=== PATIENT | female | born 1935 | race Caucasian/White ===

== ENCOUNTER → 2016-08-08 | Outpatient (CLI) | payer MEDICARE ==
--- NOTE | 2016-08-10 14:03 | MRI ---
Study: MRI of the brain. Indication: ALTERED MENTAL STATUS Technique: Multiplanar, multi sequence MRI of the brain obtained without intravenous contrast. Comparison: None. Findings: No MRI evidence of acute ischemia, acute hemorrhage, mass, mass effect, midline shift, or extra-axial fluid collection. Ventricles are normal in configuration without hydrocephalus. Patchy elevated T2/FLAIR signal abnormality is seen within the periventricular and subcortical white matter. Although nonspecific, this finding is most consistent with chronic microvascular ischemic change. Global parenchymal volume loss noted as well. Two small remote left cerebellar infarcts. Remote lacunar infarct anterior left frontal centrum semiovale measuring up to 9 mm. Midline structures are intact. Paranasal sinuses are adequately aerated. Mastoid air cells are adequately aerated. Osseous structures and soft tissues demonstrate normal signal characteristics. Impression: No MRI evidence of acute intracranial abnormality. Senescent changes. Remote infarcts as above. Electronically signed by: Nehemias Mireles MD 08/10/2016 2:02 PM CDT
== END | disposition home or self-care (01) ==
LOC: MRI 07:58
PROVIDERS: ATTEND Family Medicine
DX: R40.1 Stupor (principal)

== ENCOUNTER 2016-10-15 10:15 | Inpatient (IN) | payer MEDICARE ==
--- NOTE | 2016-10-15 10:28 | HP ---
SUPERVISING PHYSICIAN: Wally Gaona M.D. CHIEF COMPLAINT: Fever, shortness of breath and pneumonia. HISTORY OF PRESENT ILLNESS: This is an 81 year-old female patient who was seen in her primary care physician's office, Dr. Joe Boothe, due to acute lobar pneumonia. She complained of coughing and shortness of breath with any exertion. She was actually seen in the Emergency Room 5 days ago and diagnosed with left lower lobe pneumonia. She had been treated with Azithromycin, Keflex and prednisone, and her condition in fact worsened. She had a 101 degree fever on Thursday and she has had a productive cough, although she cannot get most of the phlegm up. I was called by Dr. Boothe for admission to the hospital. PAST MEDICAL HISTORY: 1. Gastroesophageal reflux disease. 2. Hyperlipidemia. 3. Osteoarthritis. 4. Osteoporosis. 5. Diastolic heart failure with an ejection fraction of 53% in 2010. 6. Lumbar disc disease. 7. Restless leg syndrome. 8. Chronic inflammatory demyelinating polyneuropathy. 9. Dementia. PAST SURGICAL HISTORY: 1. Appendectomy. 2. Cholecystectomy. 3. Fracture repair of the right femoral neck and right femoral shaft. 4. Hysterectomy. 5. Joint replacement of the right and left knee. 6. Laminectomy. 7. Vertebroplasty. OUTPATIENT MEDICATIONS: Per the EMR and awaiting verification. ALLERGIES: NO KNOWN DRUG ALLERGIES ALTHOUGH SHE HAD SOME ITCHINESS AT THE IV INSERTION SITE AFTER THE ADMINISTRATION OF LEVAQUIN TODAY. SOCIAL HISTORY: She is retired. She is . She has 2 children. She has a past history of cigarette smoking but quit many years ago. She denies any ETOH or illicit drug use. REVIEW OF SYSTEMS: GENERAL: Positive for fever, negative for fatigue or weight changes. HEENT: Negative for ear pain, vision changes, sore throat or sinus problems. RESPIRATORY: Positive for productive cough and dyspnea as well as wheezing. CARDIAC: Negative for chest pain, palpitations or tachycardia. GASTROINTESTINAL: Negative for abdominal pain, nausea, vomiting or diarrhea. GENITOURINARY: Negative for hematuria, dysuria or polyuria. NEUROLOGIC: Positive for weakness. Negative for headache or seizures. PHYSICAL EXAMINATION: VITAL SIGNS: Blood pressure 120/70, pulse rate 71, respiratory rate 18 but is up to 24 to 26 breaths per minute with exertion. O2 sat was 91% at her primary care physician's office at rest, but with exertion it dropped to 87%. GENERAL: This is an 81 year-old female patient who is sitting up in her hospital bed. HEENT: Normocephalic and atraumatic. Pupils are equal and reactive. Oropharynx is clear. NECK: Supple without mass. CHEST: Has coarse breath sounds throughout with some diffuse expiratory wheezes. CARDIOVASCULAR: Regular rate and rhythm. ABDOMEN: Soft, nondistended, non-tender. Bowel sounds are positive. EXTREMITIES: No cyanosis, clubbing or edema. SKIN: Warm and dry with no lesions or rashes noted. NEUROLOGIC: She is awake, alert and oriented to person and place. She does get quite forgetful at times and sometimes has a difficult time answering questions. LABORATORY: WBCs are 11.4 with her H&H at 15.1 and 45.5, platelets 226. Chloride 100, BUN 27, glucose 109, BNP 103. All other labs and films have been reviewed via the EMR. ASSESSMENT: 1. Left lower lobe pneumonia with failed outpatient therapy most likely community acquired pneumonia with Streptococcus pneumoniae most likely pathogen. 2. Exacerbation of chronic obstructive pulmonary disease. 3. Gastroesophageal reflux disease. 4. Obstructive sleep apnea. 5. Spinal stenosis. 6. Diastolic congestive heart failure with an ejection fraction of 53% in 2011. 7. Restless leg syndrome. 8. Chronic inflammatory demyelinating polyneuropathy. PLAN: We will admit the patient to the hospital. I have started her on scheduled and p.r.n. nebulizer treatments. She will also have an IV steroid taper. Initially I started her on Levaquin but she had some itchiness and redness at the IV site after starting the infusion, so I stopped that and I have changed her to IV Azithromycin and Rocephin. We will monitor her cultures as they become available. I have repeated the lab and a chest x-ray in the morning. I have also added Mucinex as well as bronchial hygiene and percussion. I will restart her home medications. We will monitor the patient closely and followup as needed. Dr. Gaona is the collaborating physician available for consultation. #[id number] [facility]
[2016-10-15] MEDS ORDERED: methylPREDNISolone SODIUM SUC 125 MG/2 ML VIAL IV ONE (12:34)
[2016-10-15] MEDS ORDERED: levoFLOXacin 500MG IV 500 MG in PREMIX BAG 1 BAG IVPB ONE (12:34)
[2016-10-15] MEDS ORDERED: ALBUTEROL SULFATE 2.5 MG/3 ML VIAL NEB PRN (12:36)
[2016-10-15] MEDS ORDERED: SODIUM CHLORIDE 0.9% 500ML 500 ML IVS ONE (12:40)
[2016-10-15] MEDS ORDERED: SODIUM CHLORIDE 0.9% (FLUSH) 10 ML SYG IV PRN (12:50)
[2016-10-15] MEDS: HYDROcodone 10MG/APAP 325MG 1 EA TAB PO SCH ×2 (13:06→20:17)
[2016-10-15] MEDS: IPRATROPIUM/ALBUTEROL 3 ML VIAL NEB SCH ×3 (13:30→20:10)
[2016-10-15] MEDS: GABAPENTIN 100 MG CAP PO SCH (14:20)
[2016-10-15] MEDS ORDERED: levoFLOXacin 500MG IV 100 ML IVPB ONE (14:36)
[2016-10-15] MEDS ORDERED: methylPREDNISolone SODIUM SUC 125 MG/2 ML VIAL ONE (14:37)
[2016-10-15] MEDS: IV SET AND CAP CHANGE INJ INJ SCH (14:45)
--- NOTE | 2016-10-15 14:47 | RAD ---
Procedure: XR CHEST 2 VIEWS Exam date: 10/15/2016 12:34 PM CDT Ordering Provider: PUSHPA BASHIR Clinical Indication: pneumonia Comparison: None Findings: Cardiomediastinal silhouette is within normal limits. Elevation of the right hemidiaphragm. Otherwise, lungs are clear. No pleural effusion or pneumothorax. Osseous structures are nonacute. Prior vertebral augmentation procedure in the lower thoracic spine. No evidence of active tuberculosis. Impression: No acute cardiopulmonary process. Electronically signed by: Jarocho Burns MD 10/15/2016 2:46 PM CDT
[2016-10-15] MEDS ORDERED: cefTRIAXone SODIUM 1 GM VIAL ONE ×2 (17:43→20:15)
[2016-10-15] MEDS ORDERED: SODIUM CHL 0.9% 50ML MIN-BAG+ 50 ML IVPB ONE ×2 (17:45→20:15)
[2016-10-15] MEDS: cefTRIAXone SODIUM 1 GM in SODIUM CHL 0.9% 50ML MIN-BAG+ 50 ML IVPB SCH (17:53)
[2016-10-15] MEDS: POTASSIUM CHLORIDE 20 MEQ TAB PO SCH (17:54)
[2016-10-15] MEDS ORDERED: SODIUM CHLORIDE 0.9% 250ML 250 ML ONE (20:14)
[2016-10-15] MEDS ORDERED: AZITHROMYCIN IV 500 MG VIAL IVPB ONE (20:16)
[2016-10-15] MEDS: AZITHROMYCIN IV 500 MG in SODIUM CHLORIDE 0.9% 250ML 250 ML IVPB SCH (20:40)
[2016-10-15] MEDS: guaiFENesin ER TAB 600 MG TAB PO SCH (20:54)
[2016-10-15] MEDS: DONEPEZIL HCL 5 MG TAB PO SCH (20:54)
[2016-10-15] MEDS: CELECOXIB 100 MG CAP PO SCH (20:54)
[2016-10-15] MEDS: GABAPENTIN 300 MG CAP PO SCH (20:54)
[2016-10-15] MEDS: PRAVASTATIN SODIUM 20 MG TAB PO SCH (20:54)
[2016-10-16] MEDS: HYDROcodone 10MG/APAP 325MG 1 EA TAB PO SCH ×4 (00:43→18:03)
[2016-10-16] MEDS: methylPREDNISolone SODIUM SUC 125 MG/2 ML VIAL IV SCH ×4 (00:47→18:08)
[2016-10-16] MEDS: cefTRIAXone SODIUM 1 GM in SODIUM CHL 0.9% 50ML MIN-BAG+ 50 ML IVPB SCH ×2 (05:05→17:02)
--- NOTE | 2016-10-16 07:14 | RAD ---
Procedure: XR CHEST 2 VIEWS Exam Date: 10/16/2016 Ordering Provider: PUSHPA BASHIR Clinical Indication: pna Comparison: 10/15/2016 Findings: Cardiac silhouette: Normal Pulmonary vasculature : Normal Mediastinal contour: Normal Aortic contour: Aortic calcification. Focal lung consolidation: No focal lung consolidation. Elevation of the right hemidiaphragm. Pleural effusion: None Pneumothorax: None Acute bony or soft tissue abnormality: None Impression: 1. No acute abnormalities in the chest. Electronically signed by: Babar Ward MD 10/16/2016 7:14 AM CDT
[2016-10-16] MEDS: POTASSIUM CHLORIDE 20 MEQ TAB PO SCH ×2 (07:55→17:02)
[2016-10-16] MEDS: IPRATROPIUM/ALBUTEROL 3 ML VIAL NEB SCH ×4 (08:34→20:45)
[2016-10-16] MEDS: FLUTICASONE PROP 0.05% NASAL 16 GM BTTL BNAS SCH (09:18)
[2016-10-16] MEDS: GABAPENTIN 100 MG CAP PO SCH ×2 (09:19→12:56)
[2016-10-16] MEDS: FUROSEMIDE 40 MG TAB PO SCH (09:19)
[2016-10-16] MEDS: guaiFENesin ER TAB 600 MG TAB PO SCH ×2 (09:19→20:51)
--- NOTE | 2016-10-16 12:00 | PCM.CORE ---
Physician DVT/VTE - Prophylaxis Currently: Patient already on anticoagulation therapy - Nurse DVT Assessment & Total Each Risk Factor Represents 3 Points: Age over 75 years, Medical PT with Hx of SD, CHF, Severe infection/sepsis Each Risk Factor Represents 1 Point: Medical PT at Bed Rest Each Risk Factor is 1 Point: Serious Lung disease (pnemonia <1month, COPD, emphysema,etc) DVT Assessment Score: 8 - 5 or more Very High Risk Treatments: Early Ambulation *, Sequential Compression Device
[2016-10-16] MEDS ORDERED: methylPREDNISolone SODIUM SUC 40 MG/ML VIAL IV SCH (12:30)
[2016-10-16] MEDS: PANTOPRAZOLE SODIUM IV 40 MG VIAL IV SCH (12:56)
[2016-10-16] MEDS: ENOXAPARIN SODIUM 40 MG/0.4 ML SYG SUBCU SCH (12:56)
[2016-10-16] MEDS ORDERED: IBUPROFEN 400 MG TAB PO ONE (15:30)
[2016-10-16] MEDS ORDERED: cefTRIAXone SODIUM 1 GM VIAL ONE (16:50)
[2016-10-16] MEDS ORDERED: SODIUM CHLORIDE 0.9% 250ML 250 ML ONE (16:50)
[2016-10-16] MEDS ORDERED: SODIUM CHL 0.9% 50ML MIN-BAG+ 50 ML IVPB ONE (16:50)
[2016-10-16] MEDS ORDERED: AZITHROMYCIN IV 500 MG VIAL IVPB ONE (16:51)
[2016-10-16] MEDS: AZITHROMYCIN IV 500 MG in SODIUM CHLORIDE 0.9% 250ML 250 ML IVPB SCH (18:02)
[2016-10-16] MEDS ORDERED: methylPREDNISolone SODIUM SUC 40 MG/ML VIAL ONE ×2 (18:05→20:49)
[2016-10-16] MEDS: methylPREDNISolone SODIUM SUC 40 MG/ML VIAL IV SCH (20:51)
[2016-10-16] MEDS: PRAVASTATIN SODIUM 20 MG TAB PO SCH (20:51)
[2016-10-16] MEDS: DONEPEZIL HCL 5 MG TAB PO SCH (20:52)
[2016-10-16] MEDS: GABAPENTIN 300 MG CAP PO SCH (20:52)
[2016-10-16] MEDS: CELECOXIB 100 MG CAP PO SCH (20:52)
[2016-10-16] MEDS ORDERED: ALPRAZolam 0.25 MG TAB PO PRN (21:44)
[2016-10-16] MEDS ORDERED: IBUPROFEN 400 MG TAB ONE (21:45)
[2016-10-17] MEDS: HYDROcodone 10MG/APAP 325MG 1 EA TAB PO SCH ×5 (00:21→18:42)
[2016-10-17] MEDS ORDERED: SODIUM CHL 0.9% 50ML MIN-BAG+ 50 ML IVPB ONE ×2 (05:17→16:12)
[2016-10-17] MEDS ORDERED: cefTRIAXone SODIUM 1 GM VIAL ONE ×2 (05:17→16:12)
[2016-10-17] MEDS: cefTRIAXone SODIUM 1 GM in SODIUM CHL 0.9% 50ML MIN-BAG+ 50 ML IVPB SCH ×2 (05:43→16:38)
[2016-10-17] MEDS: methylPREDNISolone SODIUM SUC 40 MG/ML VIAL IV SCH ×2 (05:43→13:51)
[2016-10-17] MEDS: POTASSIUM CHLORIDE 20 MEQ TAB PO SCH ×2 (08:07→16:38)
--- NOTE | 2016-10-17 08:25 | PN ---
SUPERVISING PHYSICIAN: Joe Boothe MD DATE: 10/16/16 SUBJECTIVE: The patient is sitting up in her bed eating her meal. She complains of a headache that has gone on and off for the last two days. Her pain medications do not seem to help and she also complains of a productive cough that she just cannot "get that junk up." Otherwise, she denies any chest pain, nausea, vomiting or diarrhea. OBJECTIVE: VITAL SIGNS: Afebrile. Pulse 80. Blood pressure 107/63. Respiratory rate 20. O2 saturation 91% on 2 liters nasal cannula. LUNGS: Coarse rhonchi throughout, somewhat diminished at the bases with a few occasional expiratory wheezes. CARDIAC: Regular rate and rhythm. ABDOMEN: Soft, nontender, nondistended. Bowel sounds are positive. EXTREMITIES: No cyanosis, clubbing or edema. NEUROLOGIC: Awake, alert and oriented times three, although she does get confused at times with short term memory issues. LABORATORY: WBC 11.8, neutrophils 90.4, hemoglobin 13, hematocrit 40.1. Chemistries are basically within normal limits with the except of BUN 26. Glucose 196. Preliminary blood cultures are no growth after 24 hours. Chest x- ray per radiologic interpretation shows no acute abnormalities of the chest. All other labs and films have been reviewed via the EMR. ASSESSMENT: 1. Left lower lobe pneumonia with failed outpatient therapy, most likely community acquired pneumonia with Streptococcus pneumoniae most likely pathogen. 2. Exacerbation of chronic obstructive pulmonary disease. 3. Gastroesophageal reflux disease. 4. Obstructive sleep apnea. 5. Spinal stenosis. 6. Headache. 7. Diastolic congestive heart failure with an ejection fraction of 53% in 2011. 8. Restless leg syndrome. 9. Chronic inflammatory demyelinating polyneuropathy. PLAN: We will continue present supportive care. I have given her some Advil for her headache and it has resolved, so we will continue that on a p.r.n. basis. I have decreased her steroids slowly. I will check her labs tomorrow. I will also order some physical therapy and she may need to continue with physical therapy after discharge with [facility], which is her home health service. I am also going to order an ambulation study. Continue to encourage good pulmonary hygiene. I have added percussion to help with the congestion. We will continue with her present antibiotic therapy. We will continue to monitor the patient closely and followup as needed. Dr. Boothe is the collaborating physician and available for consultation. #[id number] [facility]
[2016-10-17] MEDS: IBUPROFEN 400 MG TAB PO PRN ×3 (09:04→22:40)
[2016-10-17] MEDS ORDERED: PANTOPRAZOLE SODIUM TAB 40 MG PO ONE (09:09)
[2016-10-17] MEDS: IPRATROPIUM/ALBUTEROL 3 ML VIAL NEB SCH ×4 (09:12→20:55)
[2016-10-17] MEDS: FLUTICASONE PROP 0.05% NASAL 16 GM BTTL BNAS SCH (09:31)
[2016-10-17] MEDS: GABAPENTIN 100 MG CAP PO SCH ×2 (09:32→12:25)
[2016-10-17] MEDS: FUROSEMIDE 40 MG TAB PO SCH (09:32)
[2016-10-17] MEDS: guaiFENesin ER TAB 600 MG TAB PO SCH ×2 (09:35→21:05)
[2016-10-17] MEDS: PANTOPRAZOLE SODIUM TAB 40 MG PO SCH (12:24)
[2016-10-17] MEDS: BIFIDOBACTERIUM INFANTIS 4 MG CAP PO SCH (12:25)
[2016-10-17] MEDS: ENOXAPARIN SODIUM 40 MG/0.4 ML SYG SUBCU SCH (12:25)
[2016-10-17] MEDS: PANTOPRAZOLE SODIUM IV 40 MG VIAL IV SCH (12:25)
[2016-10-17] MEDS ORDERED: SODIUM CHLORIDE 0.9% 250ML 250 ML ONE (16:11)
[2016-10-17] MEDS ORDERED: AZITHROMYCIN IV 500 MG VIAL IVPB ONE (16:12)
[2016-10-17] MEDS: AZITHROMYCIN IV 500 MG in SODIUM CHLORIDE 0.9% 250ML 250 ML IVPB SCH (18:00)
--- NOTE | 2016-10-17 20:41 | PN ---
DATE: 10/17/16 SUPERVISING PHYSICIAN: Joe Boothe M.D. SUBJECTIVE: The patient is sitting up in her hospital bed. She is eating her breakfast. She is visiting with her . She says her headache is better but she still has one occasionally and still has some coughing spells. She also says that "she can't get that phlegm up", but denies any shortness of breath, nausea, vomiting or chest pain. OBJECTIVE: She is afebrile. Heart rate 94, blood pressure 139/78, respiratory rate 20, O2 sat is 96% on room air. Ambulatory studies show 96 to 97% on room air. RESPIRATORY: Essentially clear to auscultation bilaterally. There are a few scattered rhonchi in the apices. CARDIAC: Regular rate and rhythm. ABDOMEN : Soft, nondistended, non-tender. Bowel sounds are positive. NEUROLOGIC: She is awake, alert and oriented times three. LABORATORY: WBCs are 22, hemoglobin 12.6, hematocrit 39.3, platelets 181, neutrophils 86. Sodium 137, potassium 4.5, chloride 105, carbon dioxide 24, BUN 32, creatinine 1.34. Preliminary blood cultures show no growth after 48 hours. All other labs and films have been reviewed via the EMR. ASSESSMENT: 1. Left lower lobe pneumonia with failed outpatient therapy, most likely community acquired pneumonia with Streptococcus pneumoniae most likely pathogen. 2. Exacerbation of chronic obstructive pulmonary disease. 3. Gastroesophageal reflux disease. 4. Obstructive sleep apnea. 5. Spinal stenosis. 6. Headache. 7. Diastolic congestive heart failure with an ejection fraction of 53% in 2011. 8. Restless leg syndrome. 9. Chronic inflammatory demyelinating polyneuropathy. PLAN: We will continue present supportive care. I have continued the Advil for her headaches as that has worked. Her IV steroids have been discontinued and she will be started on p.o. steroids tomorrow. Will continue with her Rocephin and her Azithromycin. Continue with some physical therapy and will need to talk to Physical Therapy on their recommendation if she should continue it with her home health which is [facility] on discharge. I have ordered a lab and chest x-ray tomorrow. Encourage good pulmonary hygiene. Hopefully she can be discharged tomorrow on her p.o. steroids as well as a day or 2 of Azithromycin. We will continue to monitor the patient closely and followup as needed. Dr. Boothe is the collaborating physician available for consultation. #[id number] [facility]
[2016-10-17] MEDS: CELECOXIB 100 MG CAP PO SCH (21:03)
[2016-10-17] MEDS: DONEPEZIL HCL 5 MG TAB PO SCH (21:03)
[2016-10-17] MEDS: PRAVASTATIN SODIUM 20 MG TAB PO SCH (21:04)
[2016-10-17] MEDS: GABAPENTIN 300 MG CAP PO SCH (22:10)
[2016-10-18] MEDS ORDERED: SODIUM CHL 0.9% 50ML MIN-BAG+ 50 ML IVPB ONE (06:04)
[2016-10-18] MEDS ORDERED: cefTRIAXone SODIUM 1 GM VIAL ONE (06:04)
[2016-10-18] MEDS: cefTRIAXone SODIUM 1 GM in SODIUM CHL 0.9% 50ML MIN-BAG+ 50 ML IVPB SCH (06:13)
[2016-10-18] MEDS: IBUPROFEN 400 MG TAB PO PRN (06:13)
--- NOTE | 2016-10-18 06:38 | RAD ---
Clinical History : pna , MAIN Exam : PA and lateral views of the chest 10/18/2016 5:00 AM CDT Comparisons : PA and lateral views of the chest October 16, 2016 Findings : There is stable elevation of the right hemidiaphragm The lungs are clear without focal consolidation or pleural effusion. The heart is normal in size. The mediastinal contours are normal in appearance. There are vascular calcifications along the aortic arch. The patient is osteopenic which limits evaluation of the thoracic spine. There is stable vertebroplasty material in the lower thoracic and upper lumbar spine. The ribs and shoulders are grossly normal. Limited evaluation of the upper abdomen demonstrates no gross abnormalities. Impression: No acute cardiopulmonary disease (stable appearing chest). Electronically signed by: Tori Felipe MD 10/18/2016 6:38 AM CDT
[2016-10-18] MEDS: PANTOPRAZOLE SODIUM TAB 40 MG PO SCH (07:02)
[2016-10-18] MEDS: POTASSIUM CHLORIDE 20 MEQ TAB PO SCH (08:02)
[2016-10-18] MEDS: HYDROcodone 10MG/APAP 325MG 1 EA TAB PO SCH ×2 (08:02→12:53)
[2016-10-18] MEDS: IPRATROPIUM/ALBUTEROL 3 ML VIAL NEB SCH ×2 (08:29→13:45)
[2016-10-18] MEDS ORDERED: predniSONE 20 MG TAB PO SCH (09:00)
[2016-10-18] MEDS: guaiFENesin ER TAB 600 MG TAB PO SCH (09:21)
[2016-10-18] MEDS: FUROSEMIDE 40 MG TAB PO SCH (09:21)
[2016-10-18] MEDS: BIFIDOBACTERIUM INFANTIS 4 MG CAP PO SCH (09:21)
[2016-10-18] MEDS: FLUTICASONE PROP 0.05% NASAL 16 GM BTTL BNAS SCH (09:21)
[2016-10-18] MEDS: GABAPENTIN 100 MG CAP PO SCH ×2 (09:22→13:02)
[2016-10-18] MEDS: ENOXAPARIN SODIUM 40 MG/0.4 ML SYG SUBCU SCH (12:53)
[2016-10-18] MEDS: IV SET AND CAP CHANGE INJ INJ SCH (13:02)
[2016-10-18 13:25] VITALS: BP 149/89; TEMP 97.7; O2SAT 96
[2016-10-18] MEDS ORDERED: SODIUM CHLORIDE 0.9% (FLUSH) 10 ML SYG IV SCH (21:00)
--- NOTE | 2016-10-25 17:35 | DS ---
SUPERVISING PHYSICIAN: Joe Boothe MD DISCHARGE DIAGNOSES: 1. Left lower lobe pneumonia having failed outpatient therapy, likely community acquired pneumonia with Streptococcus pneumoniae felt to be likely pathogen. 2. Exacerbation of chronic obstructive pulmonary disease secondary to #1. 3. Gastroesophageal reflux disease. 4. Obstructive sleep apnea. 5. Spinal stenosis. 6. Chronic headaches. 7. Diastolic congestive heart failure with last ejection fraction of 53% in 2010 8. Restless leg syndrome. 9. Chronic inflammatory demyelinating polyneuropathy. HISTORY OF PRESENT ILLNESS: Romain Garcia is an 81 year-old female patient who was seen by her primary care physician, Dr. Boothe, due to acute lower lobe pneumonia. She complained of coughing and shortness of breath with any exertion. She was actually seen in the Emergency Room 5 days previous and was diagnosed with left lower lobe pneumonia. She had been treated with azithromycin, Keflex and prednisone and her condition continued to worsen. She had 101 degree fever on Thursday prior to admission with a productive cough with increase in purulent sputum. The patient was directly admitted from Dr. Boothe office on 10/15/16 in stable condition for continuous treatment, pneumonia community acquired. LABORATORY: Admission white count initially 11.4. She did show an increase in her white count up to 22,000, however, she was started on steroids and then discharged, it decreased down to 18.9. H&H remained stable and on discharge was 12.4 and 37.9. Platelet count was within normal limits at 177,000. Differential did show a left shift initially and showed to be improved prior to discharge. Chemistries on admission showed normal electrolytes with potassium 4.3, BUN 27, creatinine 1.23, at discharge electrolytes were within normal limits with 4.2 potassium. BUN was 35, creatinine 1.36, calcium 8.6. Liver functions all showed to be within normal limits. She had a BNP that was slightly elevated at 103. Urinalysis showed to be within normal limits. MICROBIOLOGY: Sputum culture and gram stain. Gram stain results showed moderate WBC,3 epithelials, moderate years, gram positive cocci. Sputum culture final results at 48 hours showed normal rich. She also had 2 sets of blood cultures, they remained negative after 5 days. RADIOLOGY: Initial chest x-ray on admission to the medical/surgical floor per radiology interpretation showed no acute cardiopulmonary process. This was followed up with chest x-ray on 10/16 after admission and per radiology interpretation there were no acute abnormalities noted. Final chest x-ray was done on 10/18/16 and per radiology interpretation there was no acute cardiopulmonary disease with the chest appearing to be stable. HOSPITAL COURSE: Mr. Hoyos was admitted on 10/15/16 for treatment of underlying pneumonia and initiated an antibiotics to include Levaquin as well as aggressive pulmonary hygiene with breathing treatments, Duoneb, albuterol and Solu-Medrol. She was also started on Rocephin and azithromycin. Clinically , the patient showed good clinical improvement with vital signs on date of discharge showing a temperature of 97.7 with pulse 85, blood pressure 149/89 with saturation of 96% on room air. Respirations were 20. She did remain afebrile through the entire hospitalization. She had clinically improved and was felt well enough to be discharged and continue with outpatient treatment. PLAN: Ms. Hoyos was discharged on 10/18/16 with instructions to have close clinical followup with Dr. Boothe in 7 days, earlier if needed. She was to resume home medications as directed, take new prescriptions as instructed. She was told to return to the hospital if any condition failed to improve or she had any concerning symptoms. At discharge, new prescriptions included: 1. Azithromycin 500 mg daily for 2 days. 2. Align 4 mg daily. 3. Cefdinir 300 mg for 6 days b.i.d. 4. Guaifenesin 600 mg [id number] as needed. 5. Ibuprofen 400 mg as needed. 6. Prednisone 10 mg daily, #12, tapering dose, 4 tablets x1 day, then 3 tablets , then 1 tablet daily until all gone. DISCHARGE DIET: Diet as tolerated. Activities: Increase as tolerated. CONDITION ON DISCHARGE: Stable and improved. #[id number] [facility]
== END 2016-10-18 14:30 | disposition home health service (06) | DRG 190 ==
LOC: MS 10:15
PROVIDERS: ADMIT Family Medicine; ATTEND Nurse Practitioner Family
DX: J44.0 Chronic obstructive pulmonary disease with (acute) lower respiratory infection (principal); J13 Pneumonia due to Streptococcus pneumoniae; I50.32 Chronic diastolic (congestive) heart failure; G61.81 Chronic inflammatory demyelinating polyneuritis; J44.1 Chronic obstructive pulmonary disease with (acute) exacerbation; R51 Headache; K21.9 Gastro-esophageal reflux disease without esophagitis; E78.5 Hyperlipidemia, unspecified; M19.90 Unspecified osteoarthritis, unspecified site; M81.0 Age-related osteoporosis without current pathological fracture; M51.36 Other intervertebral disc degeneration, lumbar region; G25.81 Restless legs syndrome; G47.33 Obstructive sleep apnea (adult) (pediatric); Z96.653 Presence of artificial knee joint, bilateral; Z87.891 Personal history of nicotine dependence

== ENCOUNTER → 2017-02-02 | Outpatient (CLI) | payer MEDICARE | END | disposition home or self-care (01) | LOC: GMA 16:12 | PROVIDERS: ATTEND Nurse Practitioner Family | DX: K52.9 Noninfective gastroenteritis and colitis, unspecified (principal); R04.0 Epistaxis ==

== ENCOUNTER → 2017-02-04 | Outpatient (CLI) | payer MEDICARE | END | disposition home or self-care (01) | LOC: YCHH 11:13 | PROVIDERS: ATTEND Family Medicine | DX: R19.7 Diarrhea, unspecified (principal) ==